=== PATIENT | female | born 1995 | race Caucasian/White ===

== ENCOUNTER → 2020-07-14 | Outpatient (CLI) | payer OTHER ==
[~2020-07-14] MED LIST: METHACHOLINE KIT (J7674) INH ONE
--- NOTE | 2020-07-14 16:11 | PFTRPT ---
Site: [facility], [address] [place], [address] ID: [id number] Name: MAGALY STEVENS Visit Date: 07/14/2020 Second ID: [id number] Referring Doctor: Saray Navarrete Reviewing Doctor: Joel Rivero MD Outside Salesman: Kelton AHMADI, MARLENY Age: 25 : 1995 Sex: Female Race: Height: 64.00 Inches Weight: 135.00 Lbs BSA: 1.66 Order IDs: [id number] Requested Test(s): <RESP-PFT.METH CHAL> Diagnosis: R06.02 of albuterol for post bronchodilator. Review Status: Not Reviewed Pre-Bronch Post-Bronch Pred Actual %Pred Actual %Chng SPIROMETRY FVC (L) 3.79 3.61 95 3.54 -1 FEV1 (L) 3.28 2.99 91 3.07 2 FEV1/FVC (%) 86 83 96 87 4 FEF 25% (L/sec) 5.86 5.57 95 5.81 4 FEF 50% (L/sec) 4.69 3.53 75 4.31 22 FEF 75% (L/sec) 2.05 1.45 70 1.59 9 FEF 25-75% (L/sec) 3.66 3.02 82 3.44 13 FEF Max (L/sec) 6.90 5.59 80 5.95 6 FIVC (L) 3.62 3.53 -2 FIF 50% (L/sec) 4.09 2.94 71 4.31 46 FIF Max (L/sec) 3.23 4.40 36 Expiratory Time (sec) 6.88 6.31 -8 Back Extrap Vol (L) 0.15 0.11 -24 Time To FEFmax (sec) 0.137 0.115 -16
--- NOTE | 2020-07-15 03:12 | REP ---
INDICATION: SOB COMPARISON: None. TECHNIQUE: PA and lateral. FINDINGS: The mediastinum and cardiac silhouette are normal. The lung jo are clear and without acute consolidation, effusion, or pneumothorax. The skeletal structures are intact and normal. IMPRESSION: No acute cardiopulmonary process. <Electronically signed by Valdez Mejia > 07/15/20 [id number]
== END ==
LOC: M CARPUL 15:25
PROVIDERS: ATTEND Nurse Practitioner Adult Health
DX: R06.02 Shortness of breath (principal)

== ENCOUNTER → 2020-07-26 | Outpatient (CLI) | payer SELFPAY | LOC: M LABSMTC 11:40 | PROVIDERS: ATTEND Pediatrics | DX: Z11.59 Encounter for screening for other viral diseases (principal) ==

== ENCOUNTER → 2020-08-02 | Outpatient (CLI) | payer OTHER ==
--- NOTE | 2020-08-02 15:40 | PFTRPT ---
Height: 64.00 Inches Weight: 135.00 Lbs BSA: 1.66 Diagnosis: R06.02 DATE: 08/02/2020 ORDERING PHYSICIAN: Saray Hodges RN, ANP Pre and post bronchodilator studies have excellent technical quality. Forced vital capacity is normal. FEV1 is in proportion. Obstructive index is therefore normal. Expiratory limit of the flow-volume loop is normal. No significant bronchodilator response is identified. Total lung capacity is normal. Residual volume borderline for air trapping. Diffusing capacity although minimally reduced is appropriate for alveolar volume and a hemoglobin is reduced at 11.3. Airway resistance and conductance are normal. IMPRESSION: Cannot rule out a minimal degree of air trapping. Mild reduction in the diffusing capacity most likely on the basis of anemia. Please correlate clinically. MTDD
== END ==
LOC: M CARPUL 14:59
PROVIDERS: ATTEND Nurse Practitioner Adult Health
DX: R06.02 Shortness of breath (principal); D64.9 Anemia, unspecified

== ENCOUNTER 2020-12-14 01:49 | Emergency (ER) | payer OTHER, SELFPAY ==
[~2020-12-14] VITALS: Ht 160 cm; Wt 61.1 kg
[2020-12-14] MEDS ORDERED: MULTTAB20 PO (02:01)
[2020-12-14] MEDS ORDERED: ADV250INH INH (02:01)
[2020-12-14] MEDS ORDERED: PROAAER10 INH (02:01)
--- NOTE | 2020-12-14 04:09 | REPVR ---
PROCEDURE INFORMATION: Exam: US , Limited Exam date and time: 12/14/2020 3:29 AM Age: 25 years old Clinical indication: complicated by abdominal or pelvic pain; Generalized abdominal pain; Second trimester; Gestational age or lmp: 08/13/20; TECHNIQUE: Imaging protocol: Real-time ultrasound of the maternal uterus with image documentation. Exam focused on the clinical indication. COMPARISON: No relevant prior studies available. FINDINGS: Gestation: Single intrauterine fetus. presentation: Breech presentation. heart rate: heartbeat of 143 bpm. Placenta: Anterior placenta which extends to 2.7 cm above the internal os. Amniotic fluid index: Normal ABELARDO of 10.6 cm. MATERNAL: Cervix: The cervix is closed measuring 4.4 cm. IMPRESSION: 1. Single live intrauterine fetus in breech presentation. 2. Anterior placenta without previa. 3. Closed cervix measuring 4.4 cm. 4. Normal ABELARDO of 10.6 cm. Electronically signed by: Sivakumar Garland On 12/14/2020 04:09:35 AM
[2020-12-14 04:31] VITALS: BP 115/61
== END 2020-12-14 04:34 | disposition home or self-care (01) ==
LOC: M ED 01:49
DX: O26.92 Pregnancy related conditions, unspecified, second trimester (principal); Z3A.17 17 weeks gestation of pregnancy; Z88.0 Allergy status to penicillin

== ENCOUNTER 2021-03-07 19:19 | Outpatient (CLI) | payer OTHER ==
[~2021-03-07] VITALS: Ht 160 cm; Wt 66.0 kg
[~2021-03-07 19:19] MED LIST changes: +ADV250INH INH; -METHACHOLINE KIT (J7674) INH ONE; +MULTTAB20 PO; +PROAAER10 INH
[2021-03-07 19:39] VITALS: BP 125/75
[2021-03-07] MEDS ORDERED: TUMS750C22 PO (19:44)
[2021-03-07] MEDS ORDERED: LR 500 ML IV ONE (19:55)
[2021-03-07] MEDS ORDERED: ONDANSETRON 4MG/2ML VIAL IV ONE (19:55)
[2021-03-07 20:35] LABS: HEMATOCRIT 36.9 % (36.0-47.0); MEAN CORPUSCULAR HEMOGLOBIN 30.7 pg (27.0-33.0); MEAN CORPUSCULAR HGB CONC 35.2 g/dl (32.0-36.5); MEAN CORPUSCULAR VOLUME 87.2 fl (80.0-96.0); PLATELET COUNT, AUTOMATED 217 10^3/uL (150-450); RED BLOOD COUNT 4.23 10^6/uL (4.00-5.40); WHITE BLOOD COUNT 15.6 10^3/uL (4.0-10.0)
[2021-03-07 20:52] LABS: ALBUMIN 3.5 GM/DL (3.2-5.2); ALT/SGPT 19 U/L (12-78); BILIRUBIN,TOTAL 0.4 MG/DL (0.2-1.0); BLOOD UREA NITROGEN 7 MG/DL (7-18); CARBON DIOXIDE LEVEL 20 MEQ/L (21-32); CHLORIDE LEVEL 106 MEQ/L (98-107); CREATININE FOR GFR 0.39 MG/DL (0.55-1.30); GLOMERULAR FILTRATION RATE > 60.0 (>60); GLUCOSE, FASTING 67 MG/DL (70-100); LIPASE 229 U/L (73-393); POTASSIUM SERUM 3.7 MEQ/L (3.5-5.1); SODIUM LEVEL 136 MEQ/L (136-145); TOTAL PROTEIN 7.2 GM/DL (6.4-8.2)
[2021-03-07 20:55] LABS: APPEARANCE, URINE HAZY (CLEAR); BACTERIA, URINE AUTO NEGATIVE (NEGATIVE); BILIRUBIN, URINE AUTO NEGATIVE (NEGATIVE); BLOOD, URINE BLOOD NEGATIVE (NEGATIVE); COLOR, URINE YELLOW (YELLOW); GLUCOSE, URINE (UA) AUTO NEGATIVE (NEGATIVE); KETONE, URINE AUTO 2+ mg/dL (NEGATIVE); LEUKOCYTE ESTERASE, URINE AUTO 1+ (NEGATIVE); MUCUS, URINE SMALL (NEGATIVE); NITRITE, URINE AUTO NEGATIVE (NEGATIVE); PROTEIN, URINE AUTO NEGATIVE (NEGATIVE); RBC, URINE AUTO 2 /HPF (0-3); SPECIFIC GRAVITY URINE AUTO 1.017 (1.002-1.035); SQUAMOUS EPITHELIAL CELL UR AU 1 /HPF (0-6); UROBILINOGEN, URINE AUTO 0.2 mg/dL (0.0-2.0); WBC, URINE AUTO 5 /HPF (0-3)
[2021-03-07] MEDS ORDERED: FLUCONAZOLE 100 MG TAB PO ONE (22:10)
[2021-03-07 22:18] LABS: RSV AMPLIFICATION NEGATIVE (NEGATIVE)
--- NOTE | 2021-03-07 22:39 | IPNPDOC ---
Text Note Date of Service The patient was seen on 03/07/21. NOTE 26 yo at 29+3 weeks gestation presented to L&D with the complaint of intermittent mid, lower back pain wrapping to the front, nausea, vomiting, and vaginal discharge. She denies any bleeding or leakage of fluid. She endorses regular movement. She reports her 2 year old was recently sick and then so was her . They both had "GI bugs." She reports her symptoms have been present over the last few days. She vomited multiple times today. She denies any fevers/chills, diarrhea, dysuria, headaches, or dizziness. Chaperoned by RN Vitals - VSS, afebrile, normotensive, non tachycardic General - AAOX3, sitting up in bed, pleasant and conversant, NAD Abdomen - Gravid uterus, no fundal tenderness Back - Tenderness to palpation at lumbosacral junction. No CVA tenderness. Pelvic - Normal external female genitalia. Speculum inserted into the vagina an d the cervix was visualized. Cervix closed. Thick white discharge in the vaginal vault. Swabs obtained. Speculum removed. Cervix cl/thick/high to digital exam. FHR tracing - Appropriate for gestational age, moderate variability, 10X10 accels, no decels Microscopy - positive for yeast Labs: CBC: 15.6>13.0/36.9<217 BMP: 136/3.7--106/20--7/0.39<67 AST/ALT - 14/19 Lipase - 229 COVID: negative Influenza A/B: negative UA - 1+ leuk est, 5 WBCs, 2+ ketones, negative nitrites Suspect viral GI syndrome as cause of symptoms based on clinical history and symptomatology. She received IV zofran and 1L LR IV bolus while in triage with improvement in symptoms. Treated with 1 PO dose of diflucan for yeast infection. No evidence of labor. Reassuring status. Recommended aggressive hydration at home, PO antiemetics, and rest. Return to care for fevers/chills, severe pain, persistent vomiting, or any worsening symptoms. All questions answered. 60 minutes of patient care Dre Luis DO VS,Araceli, I+O VS, Araceli, I+O Laboratory Tests 03/07/21 20:13 Vital Signs Date Time Temp Pulse Resp B/P (MAP) Pulse Ox O2 Delivery O2 Flow Rate FiO2 03/07/21 19:39 98.0 97 18 125/75 (92) DRE LUIS DO Mar 07, 2021 22:39
== END 2021-03-07 22:36 | disposition home or self-care (01) ==
LOC: M LDO 19:19
PROVIDERS: ATTEND Obstetrics & Gynecology
DX: O26.893 Other specified pregnancy related conditions, third trimester (principal); M54.5 Low back pain; Z3A.29 29 weeks gestation of pregnancy; O21.8 Other vomiting complicating pregnancy; O23.43 Unspecified infection of urinary tract in pregnancy, third trimester; A08.4 Viral intestinal infection, unspecified; Z88.0 Allergy status to penicillin; Z91.018 Allergy to other foods
CPT/HCPCS: 80053; 81001; 83690; 85027; 87086; 87631; 96374; G0378; G0463; J2405

== ENCOUNTER 2021-03-12 16:51 | Outpatient (CLI) | payer OTHER ==
[~2021-03-12] VITALS: Ht 160 cm; Wt 67.3 kg
[~2021-03-12 16:51] MED LIST changes: +TUMS750C22 PO
[2021-03-12 17:09] VITALS: BP 116/58
[2021-03-12] MEDS ORDERED: LR 1,000 ML IV ONE (18:10)
[2021-03-12 18:27] LABS: APPEARANCE, URINE CLEAR (CLEAR); BACTERIA, URINE AUTO NEGATIVE (NEGATIVE); BILIRUBIN, URINE AUTO NEGATIVE (NEGATIVE); BLOOD, URINE BLOOD NEGATIVE (NEGATIVE); COLOR, URINE STRAW (YELLOW); GLUCOSE, URINE (UA) AUTO NEGATIVE (NEGATIVE); KETONE, URINE AUTO NEGATIVE (NEGATIVE); LEUKOCYTE ESTERASE, URINE AUTO NEGATIVE (NEGATIVE); MUCUS, URINE SMALL (NEGATIVE); NITRITE, URINE AUTO NEGATIVE (NEGATIVE); PROTEIN, URINE AUTO NEGATIVE (NEGATIVE); RBC, URINE AUTO 0 /HPF (0-3); SPECIFIC GRAVITY URINE AUTO 1.003 (1.002-1.035); SQUAMOUS EPITHELIAL CELL UR AU 0 /HPF (0-6); UROBILINOGEN, URINE AUTO 0.2 mg/dL (0.0-2.0); WBC, URINE AUTO 0 /HPF (0-3)
[2021-03-12 19:04] LABS: HEMATOCRIT 32.7 % (36.0-47.0); HEMOGLOBIN 11.5 g/dl (12.0-15.5); MEAN CORPUSCULAR HGB CONC 35.2 g/dl (32.0-36.5); MEAN CORPUSCULAR VOLUME 88.1 fl (80.0-96.0); PLATELET COUNT, AUTOMATED 196 10^3/uL (150-450); RED BLOOD COUNT 3.71 10^6/uL (4.00-5.40); WHITE BLOOD COUNT 7.9 10^3/uL (4.0-10.0)
--- NOTE | 2021-03-12 19:08 | IPNPDOC ---
Obstetrical Progress Note Date of Service Mar 12, 2021 Subjective 26yo at 30w1d by LMP c/w 1TM US with ARTIE 18 Sep presents to triage with complaints of pelvic pressure and low back pain. She was recently evaluated on Mar with N/V where she received a bolus of IV fluids and was discharged home. Since that time she states she has not had much of an appetite and has not maintained hydration. Denies any further N/V, and also denies fevers, chills, diarrhea and constipation. Denies dysuria or hematuria. She has difficulty describing her pain, states it is a constant pressure in her low pelvis and low back with occasional sharp pains that radiate primarily along her R low back and R leg. She also reports and episode of LOF 2 days ago but is unsure if it was urine or possible ROM. She has had no further leaking since. Denies vaginal bleeding and reports +GFM. Objective Vital Signs Date Time Temp Pulse Resp B/P (MAP) Pulse Ox O2 Delivery O2 Flow Rate FiO2 03/12/21 17:09 97.7 63 116/58 (77) Laboratory Tests 03/12/21 18:08: Urine Color STRAW, Urine Appearance CLEAR, Urine pH 7.0, Urine Specific [place] 1.003, Urine Protein NEGATIVE, Urine Glucose (Auto)(UA) NEGATIVE, Urine Ketones (Auto) NEGATIVE, Urine Blood NEGATIVE, Urine Nitrite NEGATIVE, Urine Bilirubin NEGATIVE, Urine Urobilinogen 0.2, Urine Leukocyte Esterase (Auto) NEGATIVE, Urine WBC (Auto) 0, Urine RBC (Auto) 0, Urine Hyaline Casts (Auto) 0, Urine Bacteria (Auto) NEGATIVE, Urine Squamous Epithelial Cells 0, Urine Mucus (Auto) SMALL, Urine Sperm (Auto) 03/12/21 18:55: White Blood Count 7.9, Red Blood Count 3.71L, Hemoglobin 11.5L, Hematocrit 32.7 L, Mean Corpuscular Volume 88.1, Mean Corpuscular Hemoglobin 31.0, Mean Corpuscular Hemoglobin Concent 35.2, Red Cell Distribution Width 12.3, Platelet Count 196, Nucleated Red Blood Cells % (auto) 0.0 Assessment Heart Rate (FHR): 140 (mod variability, Cat 1 tracing) Tocometer Contractions: No Sterile Vaginal Examination Dilation: Fingertip (T/H ; SVE performed with neg nitrazine, neg pooling, neg ferning. ) Assessment and Plan Status: Reassuring Additional Comments 26yo at 30w1d by LMP c/w 1TM US with Artie 18 Sep -Sterile speculum exam performed, neg for ROM x3. TAUS performed as well, cephalic presentation, MVP 65cm, anterior placenta. -SVE FT/T/H -Pt with low back pain both on palpation of paraspinal muscles as well as +CVA tenderness on R -Wet prep/JINA both neg -UA neg, urine cx pending -CBC ordered, results wnl -Pt offered IV fluid bolus vs. PO intake. Requesting PO intake -Pain likely musculoskeletal in nature, exacerbated by dehydration. Pt also admitting to increased caffeine intake. Recommend increased PO hydration, decreased caffeine, heat packs to low back (avoid abdomen) and tylenol prn pain. pt has follow up [facility] scheduled in 2 weeks. All questions answered. JANINE SINGH M.D. Mar 12, 2021 19:08
== END 2021-03-12 19:45 | disposition home or self-care (01) ==
LOC: M LDO 16:51
PROVIDERS: ATTEND Obstetrics & Gynecology
DX: O26.893 Other specified pregnancy related conditions, third trimester (principal); Z3A.30 30 weeks gestation of pregnancy; R10.2 Pelvic and perineal pain; O99.283 Endocrine, nutritional and metabolic diseases complicating pregnancy, third trimester; E86.0 Dehydration
CPT/HCPCS: 36415; 59025; 81001; 85027; 87086; G0378; G0463

== ENCOUNTER 2021-04-22 07:38 | Outpatient (CLI) | payer OTHER ==
[~2021-04-22] VITALS: Ht 160 cm; Wt 70.3 kg
[2021-04-22 07:57] VITALS: BP 137/78
[2021-04-22] MEDS ORDERED: HOME MED LIST COMPLETE! XX SCH (08:00)
[2021-04-22 09:29] LABS: APPEARANCE, URINE CLEAR (CLEAR); BACTERIA, URINE AUTO NEGATIVE (NEGATIVE); BILIRUBIN, URINE AUTO NEGATIVE (NEGATIVE); BLOOD, URINE BLOOD NEGATIVE (NEGATIVE); COLOR, URINE STRAW (YELLOW); GLUCOSE, URINE (UA) AUTO NEGATIVE (NEGATIVE); KETONE, URINE AUTO NEGATIVE (NEGATIVE); LEUKOCYTE ESTERASE, URINE AUTO NEGATIVE (NEGATIVE); NITRITE, URINE AUTO NEGATIVE (NEGATIVE); PROTEIN, URINE AUTO NEGATIVE (NEGATIVE); RBC, URINE AUTO 0 /HPF (0-3); SPECIFIC GRAVITY URINE AUTO 1.004 (1.002-1.035); SQUAMOUS EPITHELIAL CELL UR AU 0 /HPF (0-6); UROBILINOGEN, URINE AUTO 0.2 mg/dL (0.0-2.0); WBC, URINE AUTO 1 /HPF (0-3)
--- NOTE | 2021-04-22 11:31 | IPNPDOC ---
Text Note Date of Service The patient was seen on 04/22/21. NOTE 26 yo at 36+0 weeks gestation presented to L&D with the complaint of pressure and contractions. She denies any bleeding or leakage of fluid. She reports regular movement. She endorses recent intercourse. First delivery was precipitous at 38 weeks and she didn't make it to the hospital in time. Chaperoned by RN Vitals - VSS, afebrile, normotensive, non tachycardic General - AAOX3, sitting up in bed, NAD Abdomen - Gravid uterus. No fundal tenderness. Cervix - 2/50/-3, posterior. Unchanged exam two hours later. FHR tracing - Cat I with moderate variability, +accels, no decels. Sporadic ctx on toco. UA - unremarkable. Pending UC. Unlikely labor. Cervix unchanged on exams two hours apart. UA clean. Reassuring status. Suspect recent intercourse at least partially contributing to symptoms. Offered continued observation in the hospital vs discharge home and Fabian opted for discharge home. We discussed strict return precautions. All questions answered. 45 minutes Araceli Tanner, I+O VS, Araceli, I+O Vital Signs Date Time Temp Pulse Resp B/P (MAP) Pulse Ox O2 Delivery O2 Flow Rate FiO2 04/22/21 07:57 96.7 77 16 137/78 (97) DRE CHANG DO Apr 22, 2021 11:31
== END 2021-04-22 11:30 | disposition home or self-care (01) ==
LOC: M LDO 07:38
PROVIDERS: ATTEND Obstetrics & Gynecology
DX: O47.03 False labor before 37 completed weeks of gestation, third trimester (principal); Z3A.36 36 weeks gestation of pregnancy; Z88.0 Allergy status to penicillin; Z91.018 Allergy to other foods
CPT/HCPCS: 59025; 81001; 87086; G0378; G0463

== ENCOUNTER 2021-05-10 15:14 | Outpatient (CLI) | payer OTHER ==
[~2021-05-10] VITALS: Ht 160 cm; Wt 71.6 kg
[2021-05-10] MEDS ORDERED: CLAR10CA3 PO (15:35)
[2021-05-10] MEDS ORDERED: ACET325C5 PO (15:35)
[2021-05-10] MEDS ORDERED: HOME MED LIST COMPLETE! XX SCH (15:35)
[2021-05-10 15:36] VITALS: BP 127/78
--- NOTE | 2021-05-10 16:35 | IPNPDOC ---
Text Note Date of Service The patient was seen on 05/10/21. NOTE Fabian Chu is a 26yo at 38+4 presenting for labor check. Her first child was a vaginal delivery at home at 38+3 due to fast labor. Today she denies vaginal bleeding or loss of fluid. She endorses contractions every 10-15 minutes and lower back pain. She endorses positive movement. She reports an uncomplicated . She reports allergy to penicillin. She reports taking vitamins only. She denies f/c/n/v/cp/sob. Vitals reviewed and within normal limits. nad, a&o x3 nonlabored breathing abd gravid, nontender, nondistended reactive NST, rare contractions every 15 minutes cervical exam 1/long/high a/p: as above with false/latent labor. I discussed with the patient normal cervical dilation during labor and that she does not appear to be in labor at this time. Can use acetaminophen 975mg q6h for back pain, hot showers, massage, position changes. Return precautions given including vaginal bleeding, loss of fluid, regular contractions every 5 minutes for an hour or decreased movement. I expressed understanding in their wishes to avoid a precipitous delivery and that she is free to return at any time if she is concerned. She and her indicated understanding. Patient discharged ambulatory home. Michael Garcia DO VSAraceli, I+O VSAraceli, I+O Vital Signs Date Time Temp Pulse Resp B/P (MAP) Pulse Ox O2 Delivery O2 Flow Rate FiO2 05/10/21 15:36 98.4 90 18 127/78 (94) MICHAEL GARCIA DO May 10, 2021 16:35
== END 2021-05-10 16:37 | disposition home or self-care (01) ==
LOC: M LDO 15:14
PROVIDERS: ATTEND Registered Nurse Maternal Newborn
DX: O47.1 False labor at or after 37 completed weeks of gestation (principal); Z3A.38 38 weeks gestation of pregnancy; Z88.0 Allergy status to penicillin; Z87.59 Personal history of other complications of pregnancy, childbirth and the puerperium; Z91.018 Allergy to other foods
CPT/HCPCS: 59025; G0378; G0463

== ENCOUNTER 2021-05-16 23:18 | Inpatient (IN) | payer OTHER ==
[~2021-05-16 23:18] MED LIST changes: +ACET325C5 PO; +CLAR10CA3 PO
[2021-05-17] VITALS (8 sets, daily range): BP systolic 113–174; BP diastolic 57–92
[2021-05-17] MEDS ORDERED: OXYTOCIN 30 UNITS IN 0.9% NaCl 500ML IV BAG (J2590) As Ordered ONE (00:08)
[2021-05-17] MEDS: LR 1,000 ML IV SCH ×3 (00:50→16:50)
[2021-05-17] MEDS ORDERED: ONDANSETRON 4MG/2ML VIAL IV PRN (00:50)
[2021-05-17] MEDS ORDERED: DIBUCAINE 1% OINTMENT 30GM TOP PRN (00:50)
[2021-05-17] MEDS ORDERED: METHYLERGONOVINE MALEATE 0.2 MG TAB PO PRN (00:50)
[2021-05-17] MEDS ORDERED: MOM 30ML SUSPENSION UDC PO PRN (00:50)
[2021-05-17] MEDS ORDERED: OXYTOCIN DRIP 30 UNITS in IV 1 EA IV SCH (00:50)
[2021-05-17] MEDS ORDERED: DOCUSATE SODIUM 100MG CAPSULE PO PRN (00:50)
[2021-05-17] MEDS ORDERED: ANUSOL HC CREAM 30GM TOP PRN (00:50)
[2021-05-17] MEDS ORDERED: ACETAMINOPHEN 500 MG TAB PO PRN (00:50)
[2021-05-17] MEDS ORDERED: METHYLERGONOVINE MALEATE 0.2 MG/ML VIAL (J2210) IM PRN (00:50)
[2021-05-17] MEDS ORDERED: CARBOPROST TROMETHAMINE 250 MCG/ML AMP IM ONE (00:55)
[2021-05-17] MEDS ORDERED: LOMOTIL 2.5MG/0.025MG TABLET PO ONE (00:55)
[2021-05-17 01:16] LABS: ALT/SGPT 25 U/L (12-78); BILIRUBIN,TOTAL 0.3 MG/DL (0.2-1.0); GLOMERULAR FILTRATION RATE > 60.0 (>60); LDH LACTATE DEHYDROGENASE 190 U/L (84-246); URIC ACID 5.6 MG/DL (2.6-6.0)
[2021-05-17] MEDS: IBUPROFEN 800 MG TAB PO PRN (01:34)
[2021-05-17] MEDS: PRENATAL VITAMINS CHEWABLE TABLET PO SCH (08:11)
[2021-05-17] MEDS: FERROUS SULFATE 325MG TAB PO SCH (08:11)
[2021-05-18 05:59] VITALS: BP 113/62
[2021-05-18 06:52] LABS: HEMATOCRIT 27.6 % (36.0-47.0); HEMOGLOBIN 9.6 g/dl (12.0-15.5); MEAN CORPUSCULAR HEMOGLOBIN 30.9 pg (27.0-33.0); MEAN CORPUSCULAR HGB CONC 34.8 g/dl (32.0-36.5); MEAN CORPUSCULAR VOLUME 88.7 fl (80.0-96.0); PLATELET COUNT, AUTOMATED 144 10^3/uL (150-450); RED BLOOD COUNT 3.11 10^6/uL (4.00-5.40); WHITE BLOOD COUNT 8.7 10^3/uL (4.0-10.0)
[2021-05-18] MEDS: IBUPROFEN 800 MG TAB PO PRN (07:28)
[2021-05-18] MEDS: PRENATAL VITAMINS CHEWABLE TABLET PO SCH (07:28)
[2021-05-18] MEDS: FERROUS SULFATE 325MG TAB PO SCH (07:28)
== END 2021-05-18 14:31 | disposition home or self-care (01) | DRG 807 ==
LOC: M LDO 23:18 → M LDI 05-17 00:05 → M OBS 05-17 02:22
PROVIDERS: ADMIT Obstetrics & Gynecology; ATTEND Obstetrics & Gynecology
PROC: 10E0XZZ Delivery of Products of Conception, External Approach (ICD-10-PCS; principal; 2021-05-17)
DX: O62.3 Precipitate labor (principal); Z37.0 Single live birth; O99.52 Diseases of the respiratory system complicating childbirth; J45.909 Unspecified asthma, uncomplicated; Z3A.39 39 weeks gestation of pregnancy; Z86.16 Personal history of COVID-19

== ENCOUNTER 2022-05-29 12:51 | Outpatient (CLI) | payer OTHER ==
[~2022-05-29] VITALS: Ht 160 cm; Wt 71.4 kg
[2022-05-29 13:07] VITALS: BP 143/82
[2022-05-29] MEDS ORDERED: MUCI600T31 PO (13:23)
[2022-05-29] MEDS ORDERED: FERR325T3 PO (13:23)
[2022-05-29] MEDS ORDERED: VITA500C24 PO (13:23)
[2022-05-29] MEDS ORDERED: PROAAER10 INH (13:25)
[2022-05-29 13:30] VITALS: BP 127/74
[2022-05-29] MEDS ORDERED: ALBUTEROL SULFATE 2.5 MG/0.5 ML INH NEB SOLN NEB ONE (14:25)
[2022-05-29] MEDS ORDERED: predniSONE 20 MG TAB PO ONE (14:30)
[2022-05-29 15:10] VITALS: BP 142/77
[2022-05-29 16:16] VITALS: BP 146/79
[2022-05-29 16:32] VITALS: BP 131/62
[2022-05-29 16:33] VITALS: BP 153/79
== END 2022-05-29 16:42 | disposition home or self-care (01) ==
LOC: M LDO 12:51
PROVIDERS: ATTEND Advanced Practice Midwife
DX: O36.8130 Decreased fetal movements, third trimester, not applicable or unspecified (principal); Z3A.29 29 weeks gestation of pregnancy; J45.901 Unspecified asthma with (acute) exacerbation; O99.513 Diseases of the respiratory system complicating pregnancy, third trimester; Z88.0 Allergy status to penicillin; Z91.018 Allergy to other foods
CPT/HCPCS: 59025; 76815; 87486; 87581; 87633; 87798; 94640; G0378; G0463; J7512

== ENCOUNTER 2022-07-16 13:08 | Outpatient (CLI) | payer OTHER ==
[~2022-07-16] VITALS: Ht 160 cm; Wt 72.9 kg
[~2022-07-16 13:08] MED LIST changes: +FERR325T3 PO; +MUCI600T31 PO; +VITA500C24 PO
[2022-07-16 13:30] VITALS: BP 103/52
[2022-07-16] MEDS ORDERED: ACETAMINOPHEN 325 MG TAB PO ONE (13:55)
[2022-07-16] MEDS ORDERED: LR 1,000 ML IV ONE (13:55)
[2022-07-16] MEDS ORDERED: LR 1,000 ML IV SCH (13:55)
[2022-07-16] MEDS ORDERED: ALBUTEROL 90 MCG/ACT 8GM HFA INHALER INH PRN (14:05)
[2022-07-16 15:33] LABS: BASO % 0.3 % (0.0-1.0); EOS # 0.1 10^3/uL (0.0-0.5); EOS % 0.6 % (0.0-3.0); HEMATOCRIT 32.6 % (36.0-47.0); HEMOGLOBIN 11.5 g/dl (12.0-15.5); LYMPH # 0.5 10^3/uL (1.5-5.0); LYMPH % 4.8 % (24.0-44.0); MEAN CORPUSCULAR HEMOGLOBIN 31.5 pg (27.0-33.0); MEAN CORPUSCULAR HGB CONC 35.3 g/dl (32.0-36.5); MEAN CORPUSCULAR VOLUME 89.3 fl (80.0-96.0); MONO % 9.1 % (2.0-8.0); NEUTROPHILS # 9.6 10^3/uL (1.5-8.5); NEUTROPHILS % 84.4 % (36.0-66.0); PLATELET COUNT, AUTOMATED 159 10^3/uL (150-450); RED BLOOD COUNT 3.65 10^6/uL (4.00-5.40); WHITE BLOOD COUNT 11.3 10^3/uL (4.0-10.0)
[2022-07-16 15:37] VITALS: BP 108/56
[2022-07-16] MEDS ORDERED: OSELTAMIVIR PHOSPHATE 75 MG CAP (TAMIFLU) PO ONE (16:05)
== END 2022-07-16 16:55 | disposition home or self-care (01) ==
LOC: M LDO 13:08
PROVIDERS: ATTEND Advanced Practice Midwife
DX: O99.513 Diseases of the respiratory system complicating pregnancy, third trimester (principal); J11.1 Influenza due to unidentified influenza virus with other respiratory manifestations; J45.909 Unspecified asthma, uncomplicated; Z3A.36 36 weeks gestation of pregnancy; Z88.0 Allergy status to penicillin; Z91.018 Allergy to other foods
CPT/HCPCS: 59025; 85025; 86850; 86900; 86901; 87486; 87581; 87633; 87798; 96360; 96361; G0378; G0463

== ENCOUNTER 2022-07-18 14:30 | Outpatient (CLI) | payer OTHER ==
[~2022-07-18] VITALS: Ht 160 cm; Wt 73.3 kg
[2022-07-18 14:51] VITALS: BP 123/71
[2022-07-18] MEDS ORDERED: ALBU2.5V10 NEB (15:10)
[2022-07-18] MEDS ORDERED: LR 1,000 ML IV ONE (15:40)
[2022-07-18] MEDS ORDERED: ONDANSETRON 4MG 2ML VIAL IV ONE (15:40)
[2022-07-18 16:14] VITALS: BP 116/64
[2022-07-18] MEDS ORDERED: ALBUTEROL 90 MCG/ACT 8GM HFA INHALER INH PRN (17:15)
[2022-07-18 18:07] VITALS: BP 118/66
== END 2022-07-18 19:57 | disposition home or self-care (01) ==
LOC: M LDO 14:30
PROVIDERS: ATTEND Registered Nurse
DX: O36.8130 Decreased fetal movements, third trimester, not applicable or unspecified (principal); Z3A.36 36 weeks gestation of pregnancy; O21.8 Other vomiting complicating pregnancy; J11.1 Influenza due to unidentified influenza virus with other respiratory manifestations; O99.513 Diseases of the respiratory system complicating pregnancy, third trimester; Z88.0 Allergy status to penicillin; Z91.018 Allergy to other foods
CPT/HCPCS: 59025; 76815; G0378; G0463; J2405

== ENCOUNTER 2022-07-28 20:02 | Inpatient (IN) | payer OTHER ==
[~2022-07-28] VITALS: Ht 160 cm; Wt 75.2 kg
[~2022-07-28 20:02] MED LIST changes: +ALBU2.5V10 NEB
[2022-07-28 20:15] VITALS: BP 133/77
[2022-07-28] MEDS ORDERED: HOME MED LIST COMPLETE! XX SCH (20:20)
[2022-07-28] MEDS ORDERED: OXYTOCIN DRIP 30 UNITS in IV 1 EA IV PRN ×4 (20:35)
[2022-07-28] MEDS ORDERED: OXYTOCIN INJ 10 UNITS/ML VIAL (J2590) IV PRN (20:35)
[2022-07-28] MEDS ORDERED: CARBOPROST TROMETHAMINE 250 MCG/ML AMP IM PRN (20:35)
[2022-07-28] MEDS ORDERED: METHYLERGONOVINE MALEATE 0.2 MG/ML VIAL (J2210) IM PRN (20:35)
[2022-07-28] MEDS ORDERED: TRANEXAMIC ACID INJection 1,000 MG in NS 100 ML IV PRN (20:35)
[2022-07-28] MEDS ORDERED: OXYTOCIN INJ 10 UNITS/ML VIAL (J2590) IM PRN (20:35)
[2022-07-28] MEDS ORDERED: LIDOCAINE 1% MDV 20ML VIAL INFIL PRN (20:35)
[2022-07-28 20:56] LABS: HEMATOCRIT 34.9 % (36.0-47.0); HEMOGLOBIN 12.3 g/dl (12.0-15.5); MEAN CORPUSCULAR HEMOGLOBIN 30.8 pg (27.0-33.0); MEAN CORPUSCULAR HGB CONC 35.2 g/dl (32.0-36.5); MEAN CORPUSCULAR VOLUME 87.3 fl (80.0-96.0); PLATELET COUNT, AUTOMATED 226 10^3/uL (150-450)
[2022-07-28 21:15] VITALS: BP 132/77
[2022-07-28 22:44] VITALS: BP 141/93
[2022-07-29] VITALS (8 sets, daily range): BP systolic 104–144; BP diastolic 57–80
[2022-07-29] MEDS ORDERED: IBUPROFEN 600MG TAB PO PRN (00:05)
[2022-07-29] MEDS ORDERED: DIBUCAINE 1% OINTMENT 30GM TOP PRN (00:05)
[2022-07-29] MEDS ORDERED: DOCUSATE SODIUM 100MG CAPSULE PO PRN (00:05)
[2022-07-29] MEDS ORDERED: ACETAMINOPHEN TAB 650MG DOSE (2X325MG) PO PRN (00:05)
[2022-07-29] MEDS ORDERED: METHYLERGONOVINE MALEATE 0.2 MG TAB PO PRN (00:05)
[2022-07-29] MEDS: IBUPROFEN 800 MG TAB PO PRN ×3 (00:14→20:33)
[2022-07-29] MEDS: ACETAMINOPHEN 500 MG TAB PO PRN ×2 (04:01→23:28)
[2022-07-29] MEDS: PRENATAL VITAMINS CHEWABLE TABLET PO SCH (09:17)
[2022-07-30 05:48] VITALS: BP 113/65
[2022-07-30] MEDS: IBUPROFEN 800 MG TAB PO PRN (06:02)
[2022-07-30] MEDS: PRENATAL VITAMINS CHEWABLE TABLET PO SCH (09:36)
[2022-07-30] MEDS: ACETAMINOPHEN 500 MG TAB PO PRN (09:37)
== END 2022-07-30 13:30 | disposition home or self-care (01) | DRG 807 ==
LOC: M LDO 20:02 → M LDI 20:43 → M OBS 07-29 01:51
PROVIDERS: ADMIT Advanced Practice Midwife; ATTEND Advanced Practice Midwife
PROC: 10E0XZZ Delivery of Products of Conception, External Approach (ICD-10-PCS; principal; 2022-07-28)
PROC: 0HQ9XZZ Repair Perineum Skin, External Approach (ICD-10-PCS; 2022-07-28)
PROC: 10907ZC Drainage of Amniotic Fluid, Therapeutic from Products of Conception, Via Natural or Artificial Opening (ICD-10-PCS; 2022-07-28)
DX: O99.52 Diseases of the respiratory system complicating childbirth (principal); Z37.0 Single live birth; Z3A.38 38 weeks gestation of pregnancy; J45.909 Unspecified asthma, uncomplicated; Z88.0 Allergy status to penicillin; Z91.018 Allergy to other foods; Z79.899 Other long term (current) drug therapy; O70.0 First degree perineal laceration during delivery; O71.7 Obstetric hematoma of pelvis

== ENCOUNTER → 2023-10-02 | Outpatient (CLI) | payer OTHER ==
[2023-10-02 10:58] LABS: THYROID STIMULATING HORMONE 0.533 uIU/ML (0.55-4.78)
[2023-10-02 10:59] LABS: FREE T4 1.16 NG/DL (0.89-1.76)
[2023-10-02 11:00] LABS: FREE T3 3.5 PG/ML (2.3-4.2)
== END ==
LOC: M LAB 09:30
PROVIDERS: ATTEND Nurse Practitioner Adult Health
DX: R94.6 Abnormal results of thyroid function studies (principal)

== ENCOUNTER → 2024-02-17 | Outpatient (REF) | payer OTHER | LOC: M LAB REF 17:06 | PROVIDERS: ATTEND Family Medicine | DX: R10.2 Pelvic and perineal pain (principal) ==

== ENCOUNTER → 2024-02-20 | Outpatient (CLI) | payer OTHER | LOC: M RAD 10:55 | PROVIDERS: ATTEND Family Medicine | DX: R10.2 Pelvic and perineal pain (principal) ==

== ENCOUNTER 2024-12-16 22:58 | Inpatient (IN) | payer OTHER ==
[~2024-12-16] VITALS: Ht 162.6 cm; Wt 77.1 kg
[2024-12-16] MEDS ORDERED: METHYLERGONOVINE MALEATE 0.2MG/ML 1ML VIAL IM PRN (23:55)
[2024-12-16] MEDS ORDERED: LIDOCAINE 1% MDV 20ML VIAL INFIL PRN (23:55)
[2024-12-16] MEDS ORDERED: CARBOPROST TROMETHAMINE 250 MCG/ML AMP IM PRN (23:55)
[2024-12-16] MEDS ORDERED: OXYTOCIN INJ 10UNITS/ML 1ML VIAL IM PRN (23:55)
[2024-12-16] MEDS ORDERED: OXYTOCIN DRIP 30 UNITS in IV 1 EA IV PRN (23:55)
[2024-12-16] MEDS ORDERED: TRANEXAMIC ACID INJection 1,000 MG in NS 100 ML IV PRN (23:55)
[2024-12-17] VITALS (15 sets, daily range): BP systolic 111–127; BP diastolic 57–78
[2024-12-17] MEDS ORDERED: PROMETHAZINE 25MG/ML 1ML VIAL IV ONE (00:15)
[2024-12-17] MEDS ORDERED: BUTORPHANOL 2 MG/ML 1ML VIAL IV ONE (00:15)
[2024-12-17 00:22] LABS: HEMATOCRIT 32.3 % (36.0-47.0); HEMOGLOBIN 11.4 g/dl (12.0-15.5); MEAN CORPUSCULAR HEMOGLOBIN 30.8 pg (27.0-33.0); MEAN CORPUSCULAR HGB CONC 35.3 g/dl (32.0-36.5); MEAN CORPUSCULAR VOLUME 87.3 fl (80.0-96.0); PLATELET COUNT, AUTOMATED 184 10^3/uL (150-450)
[2024-12-17] MEDS: miSOPROStol 50MCG 1/2 TABLET PO SCH (00:25)
[2024-12-17] MEDS: ceFAZolin SODIUM 2 GM in DEXTROSE 5% (D5W) ADV/MINI-BAG 50 ML IV STA (00:26)
[2024-12-17 01:17] LABS: HIV 1&2 SCREEN NEGATIVE (NEGATIVE)
[2024-12-17 01:25] LABS: HEPATITIS C VIRUS ABY INDEX 0.03 INDEX (<0.8)
[2024-12-17] MEDS: ceFAZolin SOD 1 GM in DEXTROSE 5% (D5W) ADV/MINI-BAG 50 ML IV SCH (08:18)
[2024-12-17] MEDS: LR 1,000 ML IV SCH (16:20)
[2024-12-17] MEDS ORDERED: LR 1,000 ML IV SCH (17:05)
[2024-12-17] MEDS: OXYTOCIN DRIP 30 UNITS in IV 1 EA IV SCH (17:28)
[2024-12-18] VITALS (9 sets, daily range): BP systolic 92–122; BP diastolic 53–66; O2SAT 95–98
[2024-12-18] MEDS ORDERED: MOM 30ML SUSPENSION UDC PO PRN (00:45)
[2024-12-18] MEDS ORDERED: METHYLERGONOVINE MALEATE 0.2 MG TAB PO PRN (00:45)
[2024-12-18] MEDS ORDERED: CALCIUM CARBONATE 500 MG CHEW U/D PO PRN (00:45)
[2024-12-18] MEDS ORDERED: ACETAMINOPHEN 325 MG TAB PO PRN (00:45)
[2024-12-18] MEDS ORDERED: RHOGAM 300MCG (1500IU) INJ IM SCH (00:45)
[2024-12-18] MEDS ORDERED: DOCUSATE SODIUM 100MG CAPSULE PO PRN (00:45)
[2024-12-18] MEDS: OXYTOCIN DRIP 30 UNITS in IV 1 EA IV SCH (01:05)
[2024-12-18] MEDS: IBUPROFEN 800 MG TAB PO PRN (01:06)
[2024-12-18] MEDS: ACETAMINOPHEN 500 MG TAB PO PRN (01:06)
[2024-12-18] MEDS: PRENATAL VITAMINS CHEWABLE TABLET PO SCH (08:59)
[2024-12-18] MEDS: ANUSOL HC CREAM 30GM TOP PRN (13:54)
[2024-12-18] MEDS: IBUPROFEN 600MG TAB PO PRN (23:38)
[2024-12-19 06:00] VITALS: BP 108/56; O2SAT 98
[2024-12-20] MEDS ORDERED: MEASLES,MUMPS,RUBELLA VACCINE INJ (MMR-II) SC.IMMUN ONE (09:00)
== END 2024-12-19 12:18 | disposition home or self-care (01) | DRG 807 ==
LOC: M LDI 22:58 → M OBS 12-18 02:41
PROVIDERS: ADMIT Advanced Practice Midwife; ATTEND Obstetrics & Gynecology
PROC: 3E0P7GC Introduction of Other Therapeutic Substance into Female Reproductive, Via Natural or Artificial Opening (ICD-10-PCS; 2024-12-16)
PROC: 10E0XZZ Delivery of Products of Conception, External Approach (ICD-10-PCS; principal; 2024-12-18)
DX: O41.03X0 Oligohydramnios, third trimester, not applicable or unspecified (principal); Z37.0 Single live birth; Z3A.36 36 weeks gestation of pregnancy; Z88.0 Allergy status to penicillin; Z91.018 Allergy to other foods; Z79.899 Other long term (current) drug therapy

== ENCOUNTER → 2024-12-16 | Outpatient (REF) | payer OTHER ==
[~2024-12-16] MED LIST changes: -ADV250INH INH; +ADVA1AER9 INH
== END ==
LOC: M PLALAB 10:16
PROVIDERS: ATTEND Nurse Practitioner Family
DX: Z36.85 Encounter for antenatal screening for Streptococcus B (principal); Z3A.36 36 weeks gestation of pregnancy